=== PATIENT | female | born 1950 | race African-American/Black ===

== ENCOUNTER 2017-09-14 10:00 | Emergency (ER) | payer OTHER ==
[2017-09-14] MEDS ORDERED: ONDANSETRON 4 MG/2 ML VIAL ONE (10:32)
[2017-09-14 10:51] LABS: Absolute Lymphocytes (CBC) 1.5 K/uL (0.7-4.9); Absolute Monocytes 0.6 K/uL (0.1-1.3); Absolute Neutrophil 3.5 K/uL (1.8-8.0); Basophils % 1.1 % (0-1.3); Eosinophils % 3.6 % (0-4.4); Hematocrit 26.1 % (36.0-45.0); Lymphocytes % 25.2 % (15.3-44.8); MCV 98.1 fL (80-100); MPV 7.3 fL (7.6-11.3); Monocytes % 10.9 % (3.3-12.3); RBC Red Blood Cell Count 2.67 M/uL (3.86-4.86)
[2017-09-14 11:17] LABS: ALT/SGPT 14 U/L (12-78); AST/SGOT 20 U/L (15-37); Albumin 3.3 g/dL (3.4-5.0); Alkaline Phosphatase 138 U/L (45-117); BUN Blood Urea Nitrogen 20 mg/dL (7-18); Bicarbonate 23 mmol/L (21-32); Bilirubin Direct < 0.1 mg/dL (0-0.2); Bilirubin Total 0.3 mg/dL (0.2-1.0); Glucose Level 104 mg/dL (74-106); Magnesium 2.2 mg/dL (1.8-2.4); NT PRO-BNP 53137 pg/mL (<125); Potassium 4.5 mmol/L (3.5-5.1); Sodium Level 135 mmol/L (136-145)
--- NOTE | 2017-09-14 11:18 | RAD REPORT ---
EXAM DESCRIPTION: RAD - Chest Single View - 09/14/2017 11:10 am CLINICAL HISTORY: Shortness of breath, dialysis patient COMPARISON: April 2014 TECHNIQUE: AP portable chest image was obtained 1055 hours . FINDINGS: Cardiac silhouette is mildly enlarged. Mild vascular engorgement present. Pattern is not s ubstantially different from the comparison. Interstitial markings are mildly prominent without focal mass or consolidation. Trachea is midline. No pneumothorax present. Left costophrenic angle blunting is probably artifact of portable imaging rather than significant pleural effusion. Bony degenerative changes are present without acute finding. No acute aortic findings suspected. IMPRESSION: Mild failure/ volume overload pattern.
--- NOTE | 2017-09-14 12:48 | EKG ---
Test Date: 2017-09-14 Test Time: 10:36:16 Dietetics Professor: ELICEO MEASUREMENT RESULTS: Intervals: Rate: 57 DE: 154 QRSD: 76 QT: 502 QTc: 488 [place]: P: 51 DE: 154 QRS: 58 T: 96 INTERPRETIVE STATEMENTS: Sinus bradycardia with premature atrial complexes Abnormal ECG Compared to ECG 05/10/2014 06:52:03 Atrial premature complex(es) now present Sinus rhythm no longer present T-wave abnormality no longer present Electronically Signed On 09-14-17 12:47:44 CDT by Doroteo Ochoa
--- NOTE | 2017-09-14 12:59 | ER ---
Nurse's Notes [facility] Name: Ligia Shen Age: 67 yrs Sex: Female : 1950 Arrival Date: 09/14/2017 Time: 10:01 Bed 5 Private MD: Diagnosis: weakness;transient hypotension;nausea Presentation: 09/14 10:01 Presenting complaint: EMS states: pt at dialysis and became weak and nauseated with 30 sg mins left for treatment, pt denies any headache, CP, dizziness, but dailysis staff reports that the BP became very low and the pt was very drowsy and became SOB, so EMS was called. pt reports that dialysis usually does not make her feel badly like it has today, pt AA\T\OX4. Transition of care: patient was not received from another setting of care. Onset of symptoms was September 14, 2017. Risk Assessment: Do you want to hurt yourself or someone else? Patient reports no desire to harm self or others. Initial Sepsis Screen: Does the patient meet any 2 criteria? No. Patient's initial sepsis screen is negative. Does the patient have a suspected source of infection? No. Patient's initial sepsis screen is negative. Care prior to arrival: IV initiated. 20 GA, in the right antecubital area, Glucose check: 88. 10:01 Method Of Arrival: EMS: [facility] sg 10:01 Acuity: SANGITA 3 sg Historical: - Allergies: 10:07 No Known Allergies; sg - Home Meds: 10:07 amlodipine oral [Active]; Lasix Oral [Active]; atorvastatin oral [Active]; Hydralazine sg Oral [Active]; Insulin: Regular Sub-Q [Active]; gabapentin oral oral [Active]; metolazone oral oral [Active]; - PMHx: 10:09 Hypertension; Diabetes - IDDM; Dialysis; M-W-F; sg - PSHx: 10:07 ; sg - Immunization history:: Adult Immunizations up to date. - Social history:: Smoking status: Patient/guardian denies using tobacco. - Ebola Screening: : Patient negative for fever greater than or equal to 101.5 degrees Fahrenheit, and additional compatible Ebola Virus Disease symptoms Patient denies exposure to infectious person Patient denies travel to an Ebola-affected area in the 21 days before illness onset No symptoms or risks identified at this time. - Family history:: not pertinent. - Hospitalizations: : No recent hospitalization is reported. Screenin:20 Abuse screen: Denies threats or abuse. Denies injuries from another. Nutritional sg screening: No deficits noted. Tuberculosis screening: No symptoms or risk factors identified. Never had TB. Fall Risk None identified. Assessment: 10:15 General: Appears in no apparent distress. comfortable, well groomed, well developed, sg well nourished, Behavior is calm, cooperative, appropriate for age. Pain: Denies pain. Neuro: Level of Consciousness is awake, alert, obeys commands, Oriented to person, place, time, situation, Underground Foreman are equal bilaterally Moves all extremities. Full function Gait is steady, Speech is normal, Facial symmetry appears normal, Pupils are PERRLA. Cardiovascular: Heart tones S1 S2 present Capillary refill is brisk in bilateral fingers Patient's skin is warm and dry. Chest pain is denied. Respiratory: Airway is patent Respiratory effort is even, unlabored, Respiratory pattern is regular, symmetrical, Breath sounds are clear. GI: Abdomen is flat, non-distended, Reports nausea, Patient currently denies diarrhea, vomiting. : No signs and/or symptoms were reported regarding the genitourinary system. EENT: No signs and/or symptoms were reported regarding the EENT system. Derm: Skin is intact, is healthy with good turgor, Skin is dry, Skin is normal, Skin temperature is warm. Musculoskeletal: No signs and/or symptoms reported regarding the musculoskeletal system. 10:21 Reassessment: Patient appears in no apparent distress at this time. at bedside evaluating pt at this time, pt family member remains at bedside, srx2 bed in low and locked position, pt remains on the monitors, awaiting orders, will continue to monitor. Vital Signs: 10:08 BP 141 / 55; Pulse 56 MON; Resp 19 S; Temp 97.7; Pulse Ox 96% on R/A; Weight 80.29 kg sg (R); Pain 0/10; 11:00 BP 138 / 64; Pulse 57; Resp 12 S; Pulse Ox 96% on R/A; Pain 0/10; sg ED Course: 10:01 Patient arrived in ED. sg 10:05 Triage completed. sg 10:08 Arm band placed on. sg 10:10 Jarred Sparrow MD is Attending Physician. wa 10:11 Mack Tello, RN is Primary Nurse. sg 10:22 Maintain EMS IV. Dressing intact. Site clean \T\ dry. Gauge \T\ site: 20 G RAC. IV is sg patent. 10:51 EKG done, by respiratory technician. reviewed by Jarred Sparrow MD. at1 11:08 XRAY Chest (1 view) In Process Unspecified. EDMS Administered Medications: 10:40 Drug: Zofran 2 mg Route: IVP; Site: right antecubital; sg Outcome: 12:58 Discharge ordered by . wa 13:37 Patient left the ED. Signatures: Dispatcher [employer] EDMS Mack Tello, RN RN Zonia hawkins, critical care unit manager EKG Tat1 Kamala Powers RN RN Jarred Sparrow MD MD [place]
--- NOTE | 2017-09-14 12:59 | EDPHYS ---
Physician Documentation [facility] Name: Ligia Shen Age: 67 yrs Sex: Female : 1950 Arrival Date: 09/14/2017 Time: 10:01 Bed 5 Private MD: ED Physician Jarred Sparrow HPI: 09/14 12:48 This 67 yrs old Black Female presents to ER via EMS with complaints of General wa Weakness, Nausea. 12:48 The patient presents to the emergency department with pt became weak with nausea and wa SOB at end of dialysis. denies chest pain. states BP dropped. denies symptoms at arrival. states similar symptoms in the past when "they take too much off". admits to not eating prior to dialysis. admits to taking all her AM meds prior to dialysis. Onset: The symptoms/episode began/occurred just prior to arrival. Possible causes: unknown. The symptoms are aggravated by nothing. The symptoms are alleviated by nothing. Associated signs and symptoms: Pertinent positives: nausea, Pertinent negatives: diarrhea, vomiting. Severity of symptoms: At their worst the symptoms were moderate in the emergency department the symptoms have resolved. The patient has experienced similar episodes in the past, a few times. The patient has not recently seen a physician. Historical: - Allergies: 10:07 No Known Allergies; sg - Home Meds: 10:07 amlodipine oral [Active]; Lasix Oral [Active]; atorvastatin oral [Active]; Hydralazine sg Oral [Active]; Insulin: Regular Sub-Q [Active]; gabapentin oral oral [Active]; metolazone oral oral [Active]; - PMHx: 10:09 Hypertension; Diabetes - IDDM; Dialysis; M-W-F; sg - PSHx: 10:07 ; sg - Immunization history:: Adult Immunizations up to date. - Social history:: Smoking status: Patient/guardian denies using tobacco. - Ebola Screening: : Patient negative for fever greater than or equal to 101.5 degrees Fahrenheit, and additional compatible Ebola Virus Disease symptoms Patient denies exposure to infectious person Patient denies travel to an Ebola-affected area in the 21 days before illness onset No symptoms or risks identified at this time. - Family history:: not pertinent. - Hospitalizations: : No recent hospitalization is reported. ROS: 12:52 Constitutional: Negative for fever, chills, and weight loss, Eyes: Negative for injury, wa pain, redness, and discharge, ENT: Negative for injury, pain, and discharge, Neck: Negative for injury, pain, and swelling, Respiratory: Negative for shortness of breath, cough, wheezing, and pleuritic chest pain, Abdomen/GI: Negative for abdominal pain, nausea, vomiting, diarrhea, and constipation, Back: Negative for injury and pain, : Negative for injury, bleeding, discharge, and swelling, MS/Extremity: Negative for injury and deformity, Skin: Negative for injury, rash, and discoloration. 12:52 Cardiovascular: Negative for chest pain, edema, palpitations. 12:52 Respiratory: Positive for transient SOB at dialysis. 12:52 Neuro: Negative for altered mental status, dizziness, headache. 12:52 All other systems are negative. Exam: 12:53 Constitutional: This is a well developed, well nourished patient who is awake, alert, wa and in no acute distress. Head/Face: Normocephalic, atraumatic. Eyes: Pupils equal round and reactive to light, extra-ocular motions intact. Lids and lashes normal. Conjunctiva and sclera are non-icteric and not injected. Cornea within normal limits. Periorbital areas with no swelling, redness, or edema. ENT: Nares patent. No nasal discharge, no septal abnormalities noted. Tympanic membranes are normal and external auditory canals are clear. Oropharynx with no redness, swelling, or masses, exudates, or evidence of obstruction, uvula midline. Mucous membranes moist. Neck: Trachea midline, no thyromegaly or masses palpated, and no cervical lymphadenopathy. Supple, full range of motion without nuchal rigidity, or vertebral point tenderness. No Meningismus. Chest/axilla: Normal chest wall appearance and motion. Nontender with no deformity. No lesions are appreciated. Cardiovascular: Regular rate and rhythm with a normal S1 and S2. No gallops, murmurs, or rubs. Normal PMI, no JVD. No pulse deficits. Abdomen/GI: Soft, non-tender, with normal bowel sounds. No distension or tympany. No guarding or rebound. No evidence of tenderness throughout. Back: No spinal tenderness. No costovertebral tenderness. Full range of motion. Skin: Warm, dry with normal turgor. Normal color with no rashes, no lesions, and no evidence of cellulitis. MS/ Extremity: Pulses equal, no cyanosis. Neurovascular intact. Full, normal range of motion. Neuro: Awake and alert, GCS 15, oriented to person, place, time, and situation. Cranial nerves II-XII grossly intact. Motor strength 5/5 in all extremities. Sensory grossly intact. Cerebellar exam normal. Normal gait. Psych: Awake, alert, with orientation to person, place and time. Behavior, mood, and affect are within normal limits. 12:53 Respiratory: the patient does not display signs of respiratory distress, Respirations: normal, Breath sounds: mild bibasilar coarseness noted, Respiratory rate: nml Vital Signs: 10:08 BP 141 / 55; Pulse 56 MON; Resp 19 S; Temp 97.7; Pulse Ox 96% on R/A; Weight 80.29 kg sg (R); Pain 0/10; 11:00 BP 138 / 64; Pulse 57; Resp 12 S; Pulse Ox 96% on R/A; Pain 0/10; sg MDM: 10:10 Patient medically screened. wa 12:54 Differential diagnosis: consider TIA, ACS, dysrhythmia. consider electrolyte abnml. wa symptoms may be related to dialysis fluid shifts. will work up and observe. will reassess. Data reviewed: vital signs, nurses notes. Test interpretation: by ED physician or midlevel provider: labs noted consistent with renal insuff. EKG: HR 57. sinus isreal. no obvious ischemic changes. Response to treatment: the patient's symptoms have markedly improved after treatment. Special discussion: pt eat a meal in ED. obs over 3-4 hours w/o complaint. will DC home with family. 09/14 10:25 Order name: Basic Metabolic Panel; Complete Time: :09/14 10:25 Order name: CBC with Diff; Complete Time: 09/14 10:25 Order name: LFT's; Complete Time: 09/14 10:25 Order name: Magnesium; Complete Time: 09/14 10:25 Order name: NT PRO-BNP; Complete Time: :09/14 10:25 Order name: PT-INR; Complete Time: 09/14 10:25 Order name: Troponin (emerg Dept Use Only); Complete Time: 11:29 ar 09/14 10:25 Order name: XRAY Chest (1 view); Complete Time: ar 09/14 10:25 Order name: EKG; Complete Time: ar 09/14 10:25 Order name: Cardiac monitoring; Complete Time: ar 09/14 10:25 Order name: IV Saline Lock; Complete Time: ar 09/14 10:26 Order name: Diet Regular; Complete Time: 09/14 10:25 Order name: Labs collected and sent; Complete Time: ar 09/14 10:25 Order name: O2 Per Protocol; Complete Time: ar 09/14 10:25 Order name: O2 Sat Monitoring; Complete Time: ar Administered Medications: 10:40 Drug: Zofran 2 mg Route: IVP; Site: right antecubital; sg Disposition: 09/14/17 12:58 Discharged to Home. Impression: weakness, transient hypotension, nausea. - Condition is Stable. - Discharge Instructions: Weakness, [id number]. - Family Work Release, Medication Reconciliation Form, Thank You Letter, Antibiotic Education, Prescription Opioid Use form. - Follow up: Private Physician; When: 1 - 2 days; Reason: Re-evaluation by your physician. - Problem is new. - Symptoms have improved. - Notes: return to ER immediately for any worrisome concerns you may have. Signatures: Dispatcher [employer] EDMack Alcala RN RN Kamala Powers RN RN Jarred Sparrow MD MD ar Corrections: (The following items were deleted from the chart) 13:37 12:58 09/14/2017 12:58 Discharged to Home. Impression: weakness; transient hypotension; hb nausea. Condition is Stable. Forms are Medication Reconciliation Form, Thank You Letter, Antibiotic Education, Prescription Opioid Use. Follow up: Private Physician; When: 1 - 2 days; Reason: Re-evaluation by your physician. Problem is new. Symptoms have improved. wa
[2017-09-14 13:42] VITALS: TEMP 97.7; O2SAT 96
[2017-09-14 13:43] VITALS: BP 138/64
== END 2017-09-14 13:37 | disposition home or self-care (01) ==
LOC: ER 10:00
DX: R53.1 Weakness (principal); I95.89 Other hypotension; R11.0 Nausea; I10 Essential (primary) hypertension; E11.9 Type 2 diabetes mellitus without complications
CPT/HCPCS: 36415; 71045; 80048; 80076; 83735; 83880; 84484; 85025; 85610; 93005; 96374; 99284; J2405